=== PATIENT | female | born 1940 | race American Indian/Alaskan Native ===

== ENCOUNTER 2017-03-04 10:07 | Outpatient (CLI) | payer MEDICARE ==
--- NOTE | 2017-03-04 11:09 | Mammography Report ---
LEFT DIGITAL DIAGNOSTIC MAMMOGRAM with CAD: 03/04/17 10:07:00 CLINICAL: Followup of a subareolar asymmetry described to measure 4 mm on a 07/22/16 [facility] mammogram. COMPARISON:07/22/16 [facility] mammogram FINDINGS: The breast is predominantly fatty with a few residual retroareolar fibroglandular densities. The previously described asymmetry is not identified on this exam. A low-density upper outer circumscribed nodule is unchanged. No mass architectural distortion or suspicious calcifications. IMPRESSION: Negative mammogram. BI-RADS CATEGORY: 1 - - Negative RECOMMENDATION: Return to routine mammographic screening. ACR BI-RADS MAMMOGRAPHIC CODES: 0 = Needs additional imaging evaluation; 1 = Negative; 2 = Benign; 3 = Probably benign; 4 = Suspicious; 5 = Malignant; 6 = Known biopsy-proven malignancy COMMENT: 1. Dense breast tissue, i.e., adenosis, fibrocystic changes, etc., may obscure an underlying neoplasm. 2. Approximately 10% of cancers are not detected with mammography. 3. A negative mammography report should not delay biopsy if a clinically suspicious mass is present. COMMENT: Patient follow-up letters are generated by our [employer] application.
== END 2017-03-04 10:08 | disposition home or self-care (01) ==
LOC: MAMMO 10:07
PROVIDERS: ATTEND Internal Medicine
DX: R92.8 Other abnormal and inconclusive findings on diagnostic imaging of breast (principal); I11.0 Hypertensive heart disease with heart failure; I50.9 Heart failure, unspecified; Z87.891 Personal history of nicotine dependence

== ENCOUNTER 2017-08-15 22:19 | Emergency (ER) | payer MEDICARE ==
--- NOTE | 2017-08-15 23:41 | Emergency Department Report ---
ED General Adult HPI - General Chief complaint: Dyspnea/Respdistress Stated complaint: DIFFICULTY IN BREATHING Time Seen by Provider: 08/15/17 22:58 Source: patient Mode of arrival: Stretcher Limitations: No Limitations - History of Present Illness Initial comments: Patient presents to emergency department with chest tightness 3 days. Patient states that she was not doing anything strenuous when this started. She denies alessia chest pain and states that she was told by her primary care physician that she has a slight case of asthma. Patient states that she had a stress test by Dr. Worthy 2 weeks ago and was normal. Patient states that this chest tightness has been continuous and denies anything making it better or worse -: Sudden Location: chest Radiation: non-radiation Severity scale (0 -10): 1 Quality: other (tightness) Consistency: constant Improves with: none Worsens with: none Associated Symptoms: denies other symptoms Treatments Prior to Arrival: none - Related Data Home Medications Medication Instructions Recorded Confirmed Last Taken ARIPiprazole [Abilify TAB] 5 mg PO DAILY 11/16/14 11/16/14 Unknown Furosemide [Lasix TAB] 40 mg PO QDAY 11/16/14 11/16/14 Unknown Insulin Detemir [Levemir VIAL] 10 unit SQ QHS 11/16/14 11/16/14 11/16/14 Lisinopril [Zestril TAB] 40 mg PO QDAY 11/16/14 11/16/14 Unknown Metoprolol [Lopressor TAB] 50 mg PO BID 11/16/14 11/16/14 Unknown NIFEdipine XL [Procardia Xl] 60 mg PO Q12HR 11/16/14 11/16/14 Unknown Pantoprazole [Protonix] 40 mg PO BID 11/16/14 11/16/14 11/16/14 Simvastatin [Zocor TAB] 10 mg PO QHS 11/16/14 11/16/14 Unknown glipiZIDE XL [Glucotrol Xl] 10 mg PO QAM 11/16/14 11/16/14 Unknown hydrALAZINE [Apresoline TAB] 100 mg PO BID 11/16/14 11/16/14 11/16/14 predniSONE [Deltasone] 5 mg PO QDAY 11/16/14 11/16/14 Unknown Previous Rx's Medication Instructions Recorded Last Taken Type Ciprofloxacin HCl [Ciprofloxacin 500 mg PO Q12HR #14 tab 11/17/14 Unknown Rx TAB] HYDROcodone/APAP 5-325 [[place] 1 each PO Q6HR PRN #10 tablet 04/27/15 Unknown Rx 5/325] ALBUTEROL Inhaler [ProAir HFA 2 puff IH QID PRN #1 inhalation 08/16/17 Unknown Rx Inhaler] Prednisone [predniSONE 10 mg 10 mg PO .TAPER #1 tab.ds.pk 08/16/17 Unknown Rx (6-Day Pack, 21 Tabs)] Allergies Allergy/AdvReac Type Severity Reaction Status Date / Time Penicillins Allergy Swelling Verified 04/27/15 10:35 ED Review of Systems ROS: Stated complaint: DIFFICULTY IN BREATHING Other details as noted in HPI Comment: All other systems reviewed and negative Constitutional: denies: chills, fever Eyes: denies: eye pain, eye discharge, vision change ENT: denies: ear pain, throat pain Respiratory: denies: cough, shortness of breath, wheezing Cardiovascular: chest pain. denies: palpitations Endocrine: no symptoms reported Gastrointestinal: denies: abdominal pain, nausea, diarrhea Genitourinary: denies: urgency, dysuria, discharge Musculoskeletal: denies: back pain, joint swelling, arthralgia Skin: denies: rash, lesions Neurological: denies: headache, weakness, paresthesias Psychiatric: denies: anxiety, depression Hematological/Lymphatic: denies: easy bleeding, easy bruising ED Past Medical Hx - Past Medical History Hx Hypertension: Yes Hx CVA: Yes (x2) Hx Congestive Heart Failure: Yes Hx Diabetes: Yes Hx Arthritis: Yes Additional medical history: Pneumonia in April 2014. HIGH CHOLESTEROL. HERNIATED DISC - Surgical History Hx Appendectomy: Yes Hx Breast Surgery: Yes (CYST RIGHT BREAST REMOVED) Additional Surgical History: RIGHT ROTATOR CUFF REPAIR. OVARY REMOVED?? - Social History Smoking Status: Never Smoker Substance Use Type: None - Medications Home Medications: Home Medications Medication Instructions Recorded Confirmed Last Taken Type ARIPiprazole [Abilify TAB] 5 mg PO DAILY 11/16/14 11/16/14 Unknown History Furosemide [Lasix TAB] 40 mg PO QDAY 11/16/14 11/16/14 Unknown History Insulin Detemir [Levemir VIAL] 10 unit SQ QHS 11/16/14 11/16/14 11/16/14 History Lisinopril [Zestril TAB] 40 mg PO QDAY 11/16/14 11/16/14 Unknown History Metoprolol [Lopressor TAB] 50 mg PO BID 11/16/14 11/16/14 Unknown History NIFEdipine XL [Procardia Xl] 60 mg PO Q12HR 11/16/14 11/16/14 Unknown History Pantoprazole [Protonix] 40 mg PO BID 11/16/14 11/16/14 11/16/14 History Simvastatin [Zocor TAB] 10 mg PO QHS 11/16/14 11/16/14 Unknown History glipiZIDE XL [Glucotrol Xl] 10 mg PO QAM 11/16/14 11/16/14 Unknown History hydrALAZINE [Apresoline TAB] 100 mg PO BID 11/16/14 11/16/14 11/16/14 History predniSONE [Deltasone] 5 mg PO QDAY 11/16/14 11/16/14 Unknown History Ciprofloxacin HCl [Ciprofloxacin 500 mg PO Q12HR #14 tab 11/17/14 Unknown Rx TAB] HYDROcodone/APAP 5-325 [[place] 1 each PO Q6HR PRN #10 tablet 04/27/15 Unknown Rx 5/325] ALBUTEROL Inhaler [ProAir HFA 2 puff IH QID PRN #1 inhalation 08/16/17 Unknown Rx Inhaler] Prednisone [predniSONE 10 mg 10 mg PO .TAPER #1 tab.ds.pk 08/16/17 Unknown Rx (6-Day Pack, 21 Tabs)] ED Physical Exam - General Limitations: No Limitations General appearance: alert, in no apparent distress - Head Head exam: Present: atraumatic, normocephalic - Eye Eye exam: Present: normal appearance - ENT ENT exam: Present: mucous membranes moist - Neck Neck exam: Present: normal inspection - Respiratory Respiratory exam: Present: normal lung sounds bilaterally. Absent: respiratory distress - Cardiovascular Cardiovascular Exam: Present: regular rate, normal rhythm. Absent: systolic murmur, diastolic murmur, rubs, gallop - GI/Abdominal GI/Abdominal exam: Present: soft, normal bowel sounds. Absent: distended, tenderness - Extremities Exam Extremities exam: Present: normal inspection, other (pretibial edema) - Back Exam Back exam: Present: normal inspection - Neurological Exam Neurological exam: Present: alert, oriented X3, CN II-XII intact. Absent: motor sensory deficit - Psychiatric Psychiatric exam: Present: normal affect, normal mood - Skin Skin exam: Present: warm, dry, intact, normal color. Absent: rash ED Course Vital Signs 08/15/17 08/15/17 08/15/17 22:21 22:30 22:33 Temperature 98.8 F Pulse Rate 67 65 Pulse Rate [ Anterior Bilateral Throughout] Respiratory 12 18 Rate Respiratory Rate [Anterior Bilateral Throughout] Blood Pressure 149/61 Blood Pressure 157/60 [Right] O2 Sat by Pulse 95 94 95 Oximetry 08/15/17 08/15/17 08/15/17 22:45 23:00 23:15 Temperature Pulse Rate 69 68 68 Pulse Rate [ Anterior Bilateral Throughout] Respiratory 19 19 18 Rate Respiratory Rate [Anterior Bilateral Throughout] Blood Pressure 151/60 144/54 133/58 Blood Pressure [Right] O2 Sat by Pulse 93 90 92 Oximetry 08/15/17 08/15/17 08/16/17 23:30 23:46 00:00 Temperature Pulse Rate 69 68 68 Pulse Rate [ Anterior Bilateral Throughout] Respiratory 13 14 19 Rate Respiratory Rate [Anterior Bilateral Throughout] Blood Pressure 143/61 152/64 158/62 Blood Pressure [Right] O2 Sat by Pulse 96 96 93 Oximetry 08/16/17 08/16/17 01:35 02:01 Temperature Pulse Rate Pulse Rate [ 65 72 Anterior Bilateral Throughout] Respiratory Rate Respiratory 20 18 Rate [Anterior Bilateral Throughout] Blood Pressure Blood Pressure [Right] O2 Sat by Pulse Oximetry ED Medical Decision Making - Lab Data Result diagrams: 08/15/17 23:51 08/15/17 23:51 - EKG Data -: EKG Interpreted by [facility] EKG shows normal: sinus rhythm Rate: normal - EKG Data Interpretation: [facility] - Medical Decision Making Patient improved after breathing treatment. Discussed results with the patient Critical care attestation.: If time is entered above; I have spent that time in minutes in the direct care of this critically ill patient, excluding procedure time. ED Disposition Clinical Impression: Shortness of breath, Asthma Disposition: DC-01 TO HOME OR SELFCARE Is pt being admited?: No Does the pt Need Aspirin: No Condition: Stable Instructions: Asthma (ED) Additional Instructions: Return if symptoms become worse Prescriptions: ALBUTEROL Inhaler [ProAir HFA Inhaler] 2 puff IH QID PRN #1 inhalation PRN Reason: Shortness Of Breath Prednisone [predniSONE 10 mg (6-Day Pack, 21 Tabs)] 10 mg PO .TAPER #1 tab.ds.pk Referrals: PRIMARY CARE, [Primary Care Provider] - 3-5 Days JUN MCGHEE MD [Staff Physician] - 3-5 Days [facility] [Outside] - 3-5 Days Time of Disposition: 02:24
[2017-08-15 23:58] LABS: Hematocrit 35.9 % (30.3-42.9); Hemoglobin 11.6 gm/dl (10.1-14.3); Mean Corpuscular HGB Conc 32 % (30-34); Mean Corpuscular Hemoglobin 29 pg (28-32); Mean Corpuscular Volume 88 fl (79-97); Platelet Count 233 K/mm3 (140-440); Red Blood Count 4.08 M/mm3 (3.65-5.03); Red Cell Distribution Width 13.9 % (13.2-15.2)
[2017-08-16 00:09] LABS: INR 0.95 (0.87-1.13); Partial Thromboplastin Time 25.6 Sec. (24.2-36.6)
--- NOTE | 2017-08-16 00:13 | XRay Report ---
FINAL REPORT PROCEDURE: XR CHEST 1V AP TECHNIQUE: Chest radiograph anteroposterior view. CPT 69291 HISTORY: chest pain COMPARISON: No prior studies are available for comparison. FINDINGS: Heart: Normal. Mediastinum/Vessels: Normal. Lungs/Pleural space: Normal. Bony thorax: No acute osseous abnormality. Life support devices: None. IMPRESSION: No acute cardiopulmonary abnormality.
[2017-08-16 00:21] LABS: Albumin 3.9 g/dL (3.9-5); Calcium 8.8 mg/dL (8.4-10.2)
[2017-08-16] MEDS ORDERED: PROVENTIL IH ONE (01:22)
[2017-08-16] MEDS ORDERED: ATROVENT IH ONE (01:22)
[2017-08-16 04:27] LABS: Anisocytosis 1+; Band Neutrophils # (Manual) 0.1 K/mm3; Basophils % (Manual) 0 % (0.0-1.8); Monocytes % (Manual) 0 % (0.0-7.3); Ovalocytes Few; Total Cells Counted 100
[2017-08-16 06:54] VITALS: BP 126/58
== END 2017-08-16 06:20 | disposition home or self-care (01) ==
LOC: ED 22:19
DX: J45.909 Unspecified asthma, uncomplicated (principal); R06.02 Shortness of breath; I10 Essential (primary) hypertension; E11.9 Type 2 diabetes mellitus without complications
CPT/HCPCS: 36415; 71045; 80053; 83880; 84484; 85007; 85025; 85610; 85730; 93005; 93010; 94640